=== PATIENT | male | born 1950 | race Caucasian/White ===

== ENCOUNTER 2017-02-18 17:52 | Emergency (ER) | payer OTHER | END 2017-02-18 21:03 | disposition home or self-care (01) | LOC: ER 17:52 | DX: J18.9 Pneumonia, unspecified organism (principal); J90 Pleural effusion, not elsewhere classified; I25.10 Atherosclerotic heart disease of native coronary artery without angina pectoris; J44.9 Chronic obstructive pulmonary disease, unspecified; I10 Essential (primary) hypertension; M54.9 Dorsalgia, unspecified; G89.29 Other chronic pain; Z95.1 Presence of aortocoronary bypass graft; Z95.2 Presence of prosthetic heart valve; F17.200 Nicotine dependence, unspecified, uncomplicated; Z79.82 Long term (current) use of aspirin; Z79.899 Other long term (current) drug therapy; Z79.4 Long term (current) use of insulin | CPT/HCPCS: 36415 ==

== ENCOUNTER 2017-03-27 05:09 | Emergency (ER) | payer OTHER | END 2017-03-27 06:06 | disposition home or self-care (01) | LOC: ER 05:09 | DX: S46.912A Strain of unspecified muscle, fascia and tendon at shoulder and upper arm level, left arm, initial encounter (principal); M15.9 Polyosteoarthritis, unspecified; I10 Essential (primary) hypertension; E10.9 Type 1 diabetes mellitus without complications; E78.5 Hyperlipidemia, unspecified; F17.210 Nicotine dependence, cigarettes, uncomplicated; Z95.5 Presence of coronary angioplasty implant and graft; Z95.1 Presence of aortocoronary bypass graft; Z79.82 Long term (current) use of aspirin; Z79.02 Long term (current) use of antithrombotics/antiplatelets; W19.XXXA Unspecified fall, initial encounter ==